=== PATIENT | female | born 2000 | race Hispanic/Latino ===

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

== ENCOUNTER 2021-07-26 05:26 | Emergency (ER) | payer BC ==
[2021-07-26] MEDS ORDERED: ACETAMINOPHEN 325 MG TABLET ONE (05:56)
[2021-07-26 07:54] LABS: SARS-COV-2 RT PCR POSITIVE (NEGATIVE)
--- NOTE | 2021-07-26 08:07 | ER ---
Nurse's Notes [facility] Name: Umm Reyes Age: 20 yrs Sex: Female : 2000 Arrival Date: 07/26/2021 Time: 05:33 Bed 20 Private MD: Diagnosis: SARS-associated coronavirus as the cause of diseases classified elsewhere Presentation: 07/26 05:51 Chief complaint: Patient states: C/o chills, cough, itchy throat, body aches and mk sneezing x2-3 days. Febrile in triage and denies SOB. Denies pmhx. Coronavirus screen: Vaccine status: Patient reports being unvaccinated. Ebola Screen: Patient negative for fever greater than or equal to 101.5 degrees Fahrenheit, and additional compatible Ebola Virus Disease symptoms. Initial Sepsis Screen: Does the patient meet any 2 criteria? No. Patient's initial sepsis screen is negative. Does the patient have a suspected source of infection? No. Patient's initial sepsis screen is negative. Risk Assessment: Do you want to hurt yourself or someone else? Patient reports no desire to harm self or others. Onset of symptoms was July 23, 2021. 05:51 Method Of Arrival: Ambulatory 05:51 Acuity: SAMY 4 Triage Assessment: 05:53 Headache History: Denies prior headaches. General: Appears in no apparent distress. mk Behavior is calm, cooperative. Pain: Denies pain. Complains of pain in throat Pain currently is 5 out of 10 on a pain scale. Quality of pain is described as burning, Pain began gradually, 2-3 days ago. Is continuous, Alleviated by medications. Neuro: Level of Consciousness is awake, alert, obeys commands, Oriented to person, place, time, situation, Die Trimmer are equal bilaterally. Cardiovascular: Capillary refill < 3 seconds in bilateral fingers toes Pulses are 2+ in right radial artery, right dorsalis pedis artery, left radial artery and left dorsalis pedis artery. 06:00 Pain: Also complains of no other associated symptoms. 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 - Social history:: Smoking status: Patient denies any tobacco usage or history of. Screenin:52 Abuse screen: Denies threats or abuse. Nutritional screening: No deficits noted. Tuberculosis screening: No symptoms or risk factors identified. Fall Risk None identified. Assessment: 05:52 General: Appears in no apparent distress. comfortable, Behavior is calm, cooperative. santiago Pain: Denies pain. Neuro: No deficits noted. Respiratory: Reports cough that is non-productive. GI: No deficits noted. 05:52 General: The pt is in NAD. She reports a cough and WALLACE. She denies having a covid santiago vaccine and was swabbed by this nurse. . 06:32 General: Report will be given to the oncoming RN. . santiago Vital Signs: 05:51 BP 134 / 85; Pulse 118; Resp 20; Temp 101.3; Pulse Ox 97% on R/A; Weight 61.4 kg; Height 5 ft. 4 in. (162.56 cm); 05:52 BP 134 / 85; Pulse 115; Resp 18; Temp 100.3; Pulse Ox 99% on R/A; Pain 0/10; santiago 06:15 Temp 98.4(O); santiago 07:55 BP 120 / 77; Pulse 89; Resp 18; Pulse Ox 99% on R/A; wallace 05:51 Body Mass Index 23.23 (61.40 kg, 162.56 cm) ED Course: 05:33 Patient arrived in ED. 05:45 Maisha Cabral, RN is Primary Nurse. santiago 05:52 Triage completed. 05:52 Patient has correct armband on for positive identification. Bed in low position. Call santiago light in reach. Adult w/ patient. 05:52 No provider procedures requiring assistance completed. santiago 05:57 Strep Sent. santiago 05:58 COVID-19/FLU A+B (Document "Date of Onset" if Symptomatic) Sent. santiago 06:01 Arm band placed on. santiago 06:18 Ramone Wilde PA is PHCP. cp 06:18 Tom Atwood MD is Attending Physician. cp 08:10 Patient did not have IV access during this emergency room visit. wallace Administered Medications: 05:57 Drug: Tylenol 650 mg Route: PO; santiago 06:08 Follow up: Response: No adverse reaction santiago Outcome: 06:00 Condition: stable santiago 08:06 Discharge ordered by MD. ruiz 08:10 Discharged to home wallace 08:10 Condition: good 08:10 Discharge instructions given to patient, Prescriptions given X 1. 08:11 Patient left the ED. wallace Signatures: Ramone Wilde PA PA cp Marsh, Wendy wm O'Farrell, Brenda, RN RN bo Au-Stager, Heather, RN RN ha Kotarski, Madeline, RN RN mk Corrections: (The following items were deleted from the chart) 05:54 05:51 Chief complaint: Patient states: C/o chills, cough, itchy throat, sneezing x2-3 mk days. Febrile in triage and denies SOB. Denies pmhx. mk
--- NOTE | 2021-07-26 08:07 | EDPHYS ---
Physician Documentation [facility] Name: Umm Reyes Age: 20 yrs Sex: Female : 2000 Arrival Date: 07/26/2021 Time: 05:33 Bed 20 Private MD: ED Physician Tom Atwood HPI: 07/26 07:05 This 20 yrs old Female presents to ER via Ambulatory with complaints of cp Headache, Fever, Body aches. 07:05 The patient or guardian reports flu symptoms, headache, fever, body aches. Onset: The cp symptoms/episode began/occurred 3 day(s) ago. 07:05 Associated signs and symptoms: Pertinent positives: sore throat, Pertinent negatives: cp chest pain, diarrhea, vomiting. 07:05 Patient reports she has not been vaccinated against COVID-19. 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 - Social history:: Smoking status: Patient denies any tobacco usage or history of. ROS: 07:06 Eyes: Negative for injury, pain, redness, and discharge. cp 07:06 Constitutional: Positive for body aches, fever, Negative for poor PO intake. 07:06 ENT: Positive for sore throat, Negative for drainage from ear(s), ear pain, difficulty swallowing, difficulty handling secretions. 07:06 Cardiovascular: Negative for chest pain. 07:06 Respiratory: Positive for cough, with no reported sputum, Negative for shortness of breath, wheezing. 07:06 Abdomen/GI: Negative for abdominal pain, nausea, vomiting, and diarrhea. 07:06 Skin: Negative for rash. 07:06 Neuro: Positive for headache, Negative for altered mental status, weakness. 07:06 All other systems are negative. Exam: 07:07 Head/Face: Normocephalic, atraumatic. cp 07:07 Constitutional: The patient appears in no acute distress, alert, awake, comfortable, non-toxic, well developed, well nourished. 07:07 Eyes: Periorbital structures: appear normal, Conjunctiva: normal, no exudate, no injection, Lids and lashes: appear normal, bilaterally. 07:07 ENT: External ear(s): are unremarkable, Ear canal(s): cerumen impaction, that is moderate, bilaterally, Nose: is normal, Mouth: Lips: moist, Oral mucosa: moist, Posterior pharynx: Airway: no evidence of obstruction, patent, Tonsils: with erythema, no enlargement, no exudate, swelling, is not appreciated, erythema, that is mild, exudate, is not appreciated. 07:07 Neck: ROM/movement: is normal, is supple, without pain, no range of motions limitations, Lymph nodes: no appreciated lymphadenopathy. 07:07 Chest/axilla: Inspection: normal. 07:07 Cardiovascular: Rate: tachycardic, Rhythm: regular. 07:07 Respiratory: the patient does not display signs of respiratory distress, Respirations: normal, no use of accessory muscles, no retractions, labored breathing, is not present, Breath sounds: are clear throughout, no decreased breath sounds, no stridor, no wheezing. 07:07 Abdomen/GI: Exam negative for discomfort, distension, guarding, Inspection: abdomen appears normal. 07:07 Neuro: Orientation: to person, place \\T\\ time. Mentation: is normal, Motor: moves all fours, strength is normal, Sensation: is normal. Vital Signs: 05:51 BP 134 / 85; Pulse 118; Resp 20; Temp 101.3; Pulse Ox 97% on R/A; Weight 61.4 kg; mk Height 5 ft. 4 in. (162.56 cm); 05:52 BP 134 / 85; Pulse 115; Resp 18; Temp 100.3; Pulse Ox 99% on R/A; Pain 0/10; santiago 06:15 Temp 98.4(O); santiago 07:55 BP 120 / 77; Pulse 89; Resp 18; Pulse Ox 99% on R/A; grissom 05:51 Body Mass Index 23.23 (61.40 kg, 162.56 cm) MDM: 06:23 Patient medically screened. cp 08:04 Data reviewed: vital signs, nurses notes, lab test result(s). ED course: VSS. Patient cp appears non-toxic and no signs of respiratory distress. Will discharge to home for continued monitoring. 07/26 05:52 Order name: COVID-19/FLU A+B (Document "Date of Onset" if Symptomatic); Complete Time: rn 08:02 07/26 08:02 Interpretation: Reviewed. cp 07/26 05:52 Order name: Strep rn 07/26 06:15 Order name: Throat Culture EDMS Administered Medications: 05:57 Drug: Tylenol 650 mg Route: PO; santiago 06:08 Follow up: Response: No adverse reaction santiago Disposition: 07/27 00:05 Co-signature as Attending Physician, Tom Atwood MD I agree with the assessment and rn plan of care. Attestation: The patient's history, exam findings, diagnostics, and a summary of any interventions or procedures was reviewed in detail with Ramone QUIGLEY. Disposition Summary: 07/26/21 08:06 Discharge Ordered Location: Home cp Problem: new cp Symptoms: have improved cp Condition: Stable cp Diagnosis - SARS-associated coronavirus as the cause of diseases classified elsewhere cp Followup: cp - With: Private Physician - When: 2 - 3 days - Reason: Worsening of condition Discharge Instructions: - Discharge Summary Sheet cp - COVID-19 cp - Things to Know about the COVID-19 Pandemic - [facility] cp - 10 Things You Can Do to Manage Your COVID-19 Symptoms at Home - [facility] cp - COVID-19: Quarantine vs. Isolation - [facility] cp - Prevent the Spread of COVID-19 if You Are Sick - [facility] cp Forms: - Medication Reconciliation Form cp - Thank You Letter cp - Antibiotic Education cp - Prescription Opioid Use cp Prescriptions: - Ibuprofen 600 mg Oral Tablet - take 1 tablet by ORAL route every 8 hours As needed take with food; 30 tablet; cp Refills: 0, Product Selection Permitted Signatures: Dispatcher [employer] EDTom Fernandez MD MD rn Page, Corey, PA PA cp Maisha Cabral RN RN bo Kotarski, Madeline RN BEBE mk Corrections: (The following items were deleted from the chart) 07/26 17:34 07:05 Onset: The symptoms/episode began/occurred yesterday, cp cp
[2021-07-26 08:25] VITALS: O2SAT 99
[2021-07-26 08:30] VITALS: TEMP 98.4
[2021-07-26 08:36] VITALS: BP 120/77
== END 2021-07-26 08:11 | disposition home or self-care (01) ==
LOC: ER 05:26
DX: U07.1 COVID-19 (principal); Z88.0 Allergy status to penicillin
CPT/HCPCS: 87070; 87081; 0240U; 99283

== ENCOUNTER 2021-11-06 20:17 | Emergency (ER) | payer OTHER ==
--- NOTE | 2021-11-06 21:57 | EDPHYS ---
Physician Documentation [facility] Name: Umm Reyes Age: 21 yrs Sex: Female : 2000 Arrival Date: 11/06/2021 Time: 20:19 Bed Waiting Private MD: ED Physician Ramone Gallardo HPI: 11/06 21:53 This 21 yrs old Female presents to ER via Ambulatory with complaints of Breast jmm Problem. 21:53 the patient presents with a swollen area of the left nipple. Onset: The jmm symptoms/episode began/occurred gradually. Possible cause(s): unknown. This is a 21 year old female with no chronic medical conditions that presents to the ED with complaints of left nipple discharge. Patient states taking out a nipple ring because she was . Patient denies fever, chills. . 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 - Social history:: Smoking status: Patient denies any tobacco usage or history of. ROS: 21:53 Constitutional: Negative for fever, chills, and weight loss, Cardiovascular: Negative jmm for chest pain, palpitations, and edema, Respiratory: Negative for shortness of breath, cough, wheezing, and pleuritic chest pain. 21:53 All other systems are negative. Exam: 21:53 Constitutional: This is a well developed, well nourished patient who is awake, alert, jmm and in no acute distress. Head/Face: atraumatic. Eyes: EOMI, no conjunctival erythema appreciated ENT: Moist Mucus Membranes Neck: Trachea midline, Supple Cardiovascular: Regular rate and rhythm. No edema appreciated 21:53 Abdomen/GI: Non distended, soft Back: Normal ROM Skin: General appearance color normal MS/ Extremity: Moves all extremities, no obvious deformities appreciated, no edema noted to the lower extremities Neuro: Awake and alert Psych: Behavior is normal, Mood is normal, Patient is cooperative and pleasant 21:53 Chest/axilla: purulent drainage noted from the left nipple, no surrounding erythema or induration. Vital Signs: 20:39 BP 111 / 69; Pulse 75; Resp 14; Temp 99; Pulse Ox 100% ; Weight 58.97 kg; Height 5 ft. al4 4 in. (162.56 cm); Pain 7/10; 21:47 BP 116 / 79; Pulse 78; Resp 16 S; Pulse Ox 100% on R/A; al4 20:39 Body Mass Index 22.31 (58.97 kg, 162.56 cm) al4 MDM: 21:53 Patient medically screened. [facility] 21:55 Data reviewed: vital signs, nurses notes. Counseling: I had a detailed discussion with [facility] the patient and/or guardian regarding: the historical points, exam findings, and any diagnostic results supporting the discharge/admit diagnosis, the need for outpatient follow up, to return to the emergency department if symptoms worsen or persist or if there are any questions or concerns that arise at home. ED course: patient is alert and non toxic in appearance in the ED. advised to follow up with gen surgery for further evaluation. Patient understood and agrees with the plan of care. . 11/06 21:52 Order name: Wound Culture [facility] Administered Medications: 22:06 Drug: Clindamycin 300 mg Route: PO; bb 22:11 Follow up: Response: No adverse reaction bb Disposition Summary: 11/06/21 21:57 Discharge Ordered Location: Home [facility] Condition: Stable [facility] Diagnosis - Cutaneous Abscess of the [place]ola [facility] Followup: [facility] - With: Iftikhar Winters MD - When: Tomorrow - Reason: Recheck today's complaints, Continuance of care, Re-evaluation by your physician Discharge Instructions: - Discharge Summary Sheet [facility] - Skin Abscess [facility] Forms: - Medication Reconciliation Form [facility] - Thank You Letter [facility] - Antibiotic Education [facility] - Prescription Opioid Use [facility] Prescriptions: - Clindamycin HCl 300 mg Oral Capsule - take 1 capsule by ORAL route every 6 hours for 10 days; 40 capsule; Refills: 0, [facility] Product Selection Permitted Signatures: Dispatcher [employer] EDMS Ashwin Melendez PA PA jmm Ballard, Brenda, RN RN Felipe Hanson al4 Corrections: (The following items were deleted from the chart) 22:18 21:53 Wound Culture+BA.LAB.BRZ ordered. EDMS EDMS
--- NOTE | 2021-11-06 21:57 | ER ---
Nurse's Notes [facility] Name: Umm Reyes Age: 21 yrs Sex: Female : 2000 Arrival Date: 11/06/2021 Time: 20:19 Bed Waiting [facility] MD: Diagnosis: Cutaneous Abscess of the [place] Presentation: 11/06 20:39 Chief complaint: Patient states: patient reports taking nipple piercings out 4 weeks al4 ago and now swollen L nipple + pain described as pinching. symptoms started 4 days ago. Coronavirus screen: Vaccine status: Patient reports being unvaccinated. Ebola Screen: No symptoms or risks identified at this time. Initial Sepsis Screen: Does the patient meet any 2 criteria? No. Patient's initial sepsis screen is negative. Does the patient have a suspected source of infection? No. Patient's initial sepsis screen is negative. Risk Assessment: Do you want to hurt yourself or someone else? Patient reports no desire to harm self or others. Onset of symptoms was November 03, 2021. 20:39 Method Of Arrival: Ambulatory al4 20:39 Acuity: SAMY 4 al4 Triage Assessment: 20:41 General: Appears in no apparent distress. uncomfortable, Behavior is calm, cooperative. al4 Pain: Complains of pain in left nipple and left breast Pain currently is 8 out of 10 on a pain scale. Quality of pain is described as tingling, throbbing, piercing, pinching. Neuro: Level of Consciousness is awake, alert, obeys commands, Oriented to person, place, time, situation. Cardiovascular: Patient's skin is warm and dry. Respiratory: Airway is patent Respiratory effort is unlabored, Respiratory pattern is regular. 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 - Social history:: Smoking status: Patient denies any tobacco usage or history of. Screenin:36 Abuse screen: Denies threats or abuse. Nutritional screening: No deficits noted. al4 Tuberculosis screening: No symptoms or risk factors identified. Fall Risk None identified. Assessment: 21:12 Reassessment: Patient appears in no apparent distress at this time. Patient is alert al4 and oriented. Patient has visitor present at this time. . 21:48 Reassessment: ER PA in triage room assessing patient. al4 21:59 Reassessment: Patient appears in no apparent distress at this time. al4 22:37 Reassessment: Patient appears in no apparent distress at this time. Patient is alert, al4 oriented x 3, equal unlabored respirations, skin warm/dry/pink. Vital Signs: 20:39 BP 111 / 69; Pulse 75; Resp 14; Temp 99; Pulse Ox 100% ; Weight 58.97 kg; Height 5 ft. al4 4 in. (162.56 cm); Pain 7/10; 21:47 BP 116 / 79; Pulse 78; Resp 16 S; Pulse Ox 100% on R/A; al4 20:39 Body Mass Index 22.31 (58.97 kg, 162.56 cm) al4 ED Course: 20:19 Patient arrived in ED. jj6 20:41 Triage completed. al4 20:41 Arm band placed on right wrist. al4 21:17 Ashwin Melendez PA is PHCP. [facility] 21:18 Ramone Gallardo MD is Attending Physician. [facility] 21:56 Iftikhar Winters MD is Referral Physician. [facility] 21:58 Wound Culture Sent. al4 22:36 Patient has correct armband on for positive identification. al4 22:36 No provider procedures requiring assistance completed. Patient did not have IV access al4 during this emergency room visit. 22:37 Felipe Lan is Primary Nurse. al4 Administered Medications: 22:06 Drug: Clindamycin 300 mg Route: PO; bb 22:11 Follow up: Response: No adverse reaction bb Outcome: 21:57 Discharge ordered by . jm 22:36 Discharged to home ambulatory. al4 22:36 Condition: stable 22:36 Discharge instructions given to patient, family, Instructed on discharge instructions, follow up and referral plans. medication usage, Demonstrated understanding of instructions, follow-up care, medications. 22:37 Patient left the ED. al4 Signatures: Ashwin Melendez PA PA Maisha Jones, BEBE RN Sujey Rodriguez jj6 Felipe Lan al4 Corrections: (The following items were deleted from the chart) 22:18 21:58 Wound Culture+BA.LAB.BRZ drawn and sent. al4 EDMS
[2021-11-06 22:47] VITALS: TEMP 99; O2SAT 100
[2021-11-06 22:48] VITALS: BP 116/79
== END 2021-11-06 22:37 | disposition home or self-care (01) ==
LOC: ER 20:17
DX: N61.1 Abscess of the breast and nipple (principal); Z88.0 Allergy status to penicillin
CPT/HCPCS: 87070; 87205; 99283

== ENCOUNTER 2021-11-15 17:02 | Emergency (ER) | payer OTHER ==
[2021-11-15 17:42] LABS: Absolute Lymphocytes (CBC) 2.3 K/uL (0.7-4.9); Hematocrit 36.2 % (36.0-45.0); Lymphocytes % 18.9 % (15.3-44.8); MPV 8.2 fL (7.6-11.3); RBC Red Blood Cell Count 3.99 M/uL (3.86-4.86)
[2021-11-15 17:50] LABS: Protime INR 1.08
[2021-11-15 18:04] LABS: ALT/SGPT 23 U/L (12-78); AST/SGOT 14 U/L (15-37); Albumin 3.7 g/dL (3.4-5.0); Alkaline Phosphatase 42 U/L (45-117); BUN Blood Urea Nitrogen 12 mg/dL (7-18); Bicarbonate 23 mmol/L (21-32); Bilirubin Direct 0.2 mg/dL (0-0.2); Bilirubin Total 0.5 mg/dL (0.2-1.0); Glucose Level 70 mg/dL (74-106); Potassium 3.3 mmol/L (3.5-5.1); Protein, Total 7.6 g/dL (6.4-8.2); Sodium Level 135 mmol/L (136-145)
[2021-11-15] MEDS ORDERED: NA CHLORIDE 0.9% 1,000 ML ONE (18:05)
[2021-11-15] MEDS ORDERED: NS KCL 20MEQ 1,000 ML IV ONE (18:40)
[2021-11-15 20:14] LABS: Urine Blood 1+ (Negative); Urine Glucose Negative (Negative); Urine Protein 1+ (Negative); Urine Specific Gravity 1.025 (1.005-1.030)
[2021-11-15 20:25] LABS: Urine Specific Gravity/Preg 1.025 (1.005-1.030)
[2021-11-15 20:33] LABS: Barbiturates NEGATIVE (NEGATIVE); Benzodiazepines NEGATIVE (NEGATIVE); Cocaine NEGATIVE (NEGATIVE); METHAMPHETAM NEGATIVE (NEGATIVE); Methadone NEGATIVE (NEGATIVE); Opiates NEGATIVE (NEGATIVE); Phencyclidine NEGATIVE (NEGATIVE); THC Cannibis NEGATIVE (NEGATIVE)
[2021-11-15] MEDS ORDERED: DICYCLOMINE HCL 20 MG/2 ML AMP IM ONE (21:32)
[2021-11-15] MEDS ORDERED: PANTOPRAZOLE 40 MG INJ ONE (21:34)
[2021-11-16 00:15] LABS: Potassium 3.8 mmol/L (3.5-5.1)
--- NOTE | 2021-11-16 02:02 | ER ---
Nurse's Notes [facility] Name: Umm Reyes Age: 21 yrs Sex: Female : 2000 Arrival Date: 11/15/2021 Time: 17:13 Bed 8 Private MD: Diagnosis: Impulsiveness;Suicidal ideations;10 weeks gestation of ;UTI/ Urinary tract infection, site not specified Presentation: 11/15 07:13 Chief complaint: Patient states: Took "handful" of ibuprofen, 800 mg tablets ss approximately 2 hours ago. Pt states that she is 10.5 weeks . Has been having suicidal thoughts recently, no HX of suicidal attempt in the past. Coronavirus screen: Client denies travel out of the [place] in the last 14 days. 07:13 Method Of Arrival: Wheelchair ss 17:26 Ebola Screen: No symptoms or risks identified at this time. Risk Assessment: Do you ph want to hurt yourself or someone else? Patient reports desire/thoughts of hurting themselves or someone else. Provider notified. 17:26 Acuity: SAMY 2 ph 17:49 Initial Sepsis Screen: Does the patient meet any 2 criteria? No. Patient's initial ph sepsis screen is negative. Does the patient have a suspected source of infection? No. Patient's initial sepsis screen is negative. Onset of symptoms was November 15, 2021. Historical: - Allergies: 17:24 PENICILLINS; ph - Immunization history:: Adult Immunizations up to date. - Social history:: Smoking status: Patient denies any tobacco usage or history of. Screenin:25 Abuse screen: Denies threats or abuse. Denies injuries from another. Nutritional ph screening: No deficits noted. Tuberculosis screening: No symptoms or risk factors identified. Fall Risk None identified. Assessment: 17:30 Reassessment: PT remains on monitors for 6 hours medical observation. [place] technical service representative who ss is sitting with patient currently is aware of any and all ligature risks that remain in room. Pt voices concern about her . Mother remains at bedside. General: Appears in no apparent distress. Behavior is cooperative, quiet. Pain: Denies pain. Neuro: Ritchie Agitation-Sedation Scale (RASS): 0 - Alert and Calm Level of Consciousness is awake, alert, obeys commands, Oriented to person, place, time, situation. Cardiovascular: Capillary refill < 3 seconds is brisk in bilateral fingers. Respiratory: Airway is patent Respiratory effort is even, unlabored, Respiratory pattern is regular, symmetrical, Denies cough, shortness of breath labored breathing. GI: Abdomen is non-distended. : No signs and/or symptoms were reported regarding the genitourinary system. EENT: Oral mucosa is moist. Derm: Skin is intact, is healthy with good turgor, Skin is dry, Skin is pink, warm \\T\\ dry. normal. Musculoskeletal: Circulation, motion, and sensation intact. Range of motion: intact in all extremities, Swelling absent. 18:38 Reassessment: Patient appears in no apparent distress at this time. No changes from jd3 previously documented assessment. Patient and/or family updated on plan of care and expected duration. Pain level reassessed. Patient is alert, oriented x 3, equal unlabored respirations, skin warm/dry/pink. 19:10 Reassessment: Nurse handing off report states IV fluids running at 250ml/hr instead of jb4 rate 500ml/hr, provider okayed fluid to continue at this rate after shift change. 19:30 Reassessment: Patient appears in no apparent distress at this time. Patient and/or jb4 family updated on plan of care and expected duration. Pain level reassessed. Patient is alert, oriented x 3, equal unlabored respirations, skin warm/dry/pink. 20:30 Reassessment: Patient appears in no apparent distress at this time. Patient and/or jb4 family updated on plan of care and expected duration. Pain level reassessed. Patient is alert, oriented x 3, equal unlabored respirations, skin warm/dry/pink. 21:25 Reassessment: Patient and/or family updated on plan of care and expected duration. Pain jb4 level reassessed. Patient is alert, oriented x 3, equal unlabored respirations, skin warm/dry/pink. Pt reporting abdominal pain and cramping, provider notified, see MAR for orders. 22:17 Reassessment: Patient appears in no apparent distress at this time. Patient and/or jb4 family updated on plan of care and expected duration. Pain level reassessed. Patient is alert, oriented x 3, equal unlabored respirations, skin warm/dry/pink. 23:30 Reassessment: Patient appears in no apparent distress at this time. Patient and/or jb4 family updated on plan of care and expected duration. Pain level reassessed. Patient is alert, oriented x 3, equal unlabored respirations, skin warm/dry/pink. 11/16 00:30 Reassessment: Patient appears in no apparent distress at this time. Patient and/or jb4 family updated on plan of care and expected duration. Pain level reassessed. Patient is alert, oriented x 3, equal unlabored respirations, skin warm/dry/pink. 01:30 Reassessment: Patient appears in no apparent distress at this time. Patient and/or jb4 family updated on plan of care and expected duration. Pain level reassessed. Patient is alert, oriented x 3, equal unlabored respirations, skin warm/dry/pink. Psych: 11/15 17:15 [place] Suicide Severity Screening: In the past month, have you wished you were ss or wished you could go to sleep and not wake up? Patient responds "yes." "In the past month, have you actually had any thoughts of killing yourself?" Patient responds "yes." "In your lifetime, have you ever done anything, started to do anything, or prepared to do anything to end your life?" Patient responds "yes." Patient reports suicidal intent within 3 past months. Subjective: Patient's mood is sad, Delusions are denied, Hallucinations are denied Having thoughts of suicide. Objective: Patient is cooperative, Speech is normal, Affect is flat. Interventions: Removed personal items and placed in bag. Searched person for dangerous items. Belonging list filled out. Belongings list completed. Copy of paper and belongings given to security, copy placed in patient chart and copy remains with sitter log. Safety Checks: Personal items have been removed. Door is open. Visitors are present. PT must remain on monitors for a minimum of 6 hour MEDICAL observation. Sitter is aware of any ligature risks in the room. Pt denies substance abuse. Commitment: Patient will be a voluntary commitment. Vital Signs: 17:20 BP 131 / 86; Pulse 93; Resp 14; Temp 97.6(TE); Pulse Ox 99% on R/A; ss 18:38 BP 122 / 78; Pulse 86; Resp 19 S; Pulse Ox 100% on R/A; jd3 19:30 BP 115 / 75; Pulse 78; Resp 16; Pulse Ox 98% on R/A; jb4 20:30 BP 117 / 73; Pulse 82; Resp 16; Pulse Ox 100% on R/A; jb4 21:09 BP 104 / 68; Pulse 85; Resp 18; Pulse Ox 100% ; zm 22:00 BP 102 / 63; Pulse 81; Resp 16; Pulse Ox 98% on R/A; jb4 23:30 BP 108 / 62; Pulse 76; Resp 16; Pulse Ox 98% on R/A; jb4 0512 01:30 BP 116 / 71; Pulse 81; Resp 18 S; Pulse Ox 96% ; jb4 Vitals: 02:54 Heart Tones 155bpm; Dr. Gallardo notified . lp1 ED Course: 11/15 17:13 Patient arrived in ED. jr8 17:15 Tera Melgar PA is PHCP. jr8 17:15 Rashid Muñiz DO is Attending Physician. jr8 17:22 Jose Vail, RN is Primary Nurse. jd3 17:25 Arm band placed on Patient placed in an exam room. ph 17:26 Triage completed. ph 17:34 Inserted saline lock: 20 gauge in right antecubital area, using aseptic technique. zm Blood collected. 17:35 Acetaminophen Sent. zm 17:35 Basic Metabolic Panel Sent. zm 17:35 CBC with Diff Sent. zm 17:35 ETOH Level Sent. zm 17:35 Hepatic Function Sent. zm 17:35 PT-INR Sent. zm 17:35 Ptt, Activated Sent. zm 17:35 Salicylate Sent. zm 17:49 Jerri Cam, RN is Primary Nurse. ph 17:49 Patient has correct armband on for positive identification. Placed in gown. Bed in low ph position. Call light in reach. Client placed on continuous cardiac and pulse oximetry monitoring. NIBP monitoring applied. 20:07 COVID-19 SARS RT PCR (Document "Date of Onset" if Symptomatic) Sent. zm 23:33 contacted [facility] spoke to [facility] to have a screener evaluate the mw2 patient. 11/16 01:16 Attending Physician role handed off by Rashid Muñiz DO leana 01:16 Ramone Gallardo MD is Attending Physician. leana 02:02 Amrit Boykin MD is Referral Physician. leana 02:03 Rodolfo Cannon MD is Referral Physician. [facility] 03:05 No provider procedures requiring assistance completed. IV discontinued, intact, jb4 bleeding controlled, No redness/swelling at site. Pressure dressing applied. Administered Medications: 11/15 18:17 Discontinued: NS 0.9% 1000 ml IV at 125 ml/hr continuous jr8 18:05 Drug: NS 0.9% 1000 ml Route: IV; Rate: 125 ml/hr; Site: right antecubital; jd3 18:37 Follow up: Response: No adverse reaction; IV Status: Order to discontinue infusion jd3 18:37 Drug: NS 0.9% with KCl 20 mEq/L 1000 ml Route: IV; Rate: 500 ml/hr; Site: right jd3 antecubital; 22:45 Follow up: Response: No adverse reaction; IV Status: Completed infusion; IV Intake: jb4 1000ml 21:46 Drug: ProTONIX (pantoprazole) 40 mg Route: IVP; Site: right antecubital; jb4 23:00 Follow up: Response: No adverse reaction; Marked relief of symptoms jb4 22:24 Drug: Dicyclomine 20 mg Route: IM; Site: right ventrogluteal; as6 23:00 Follow up: Response: No adverse reaction; Marked relief of symptoms jb4 Medication: 17:30 VIS not applicable for this client. ss Intake: 22:45 IV: 1000ml; Total: 1000ml. jb4 Outcome: 11/16 02:02 Discharge ordered by . [facility] 03:05 Discharged to home ambulatory. jb4 03:05 Condition: stable 03:05 Discharge instructions given to patient, Instructed on discharge instructions, follow up and referral plans. medication usage, Demonstrated understanding of instructions, follow-up care, medications, Prescriptions given X 1. 03:06 Patient left the ED. jb4 Signatures: Ramone Gallardo MD MD cha Smirch, Shelby RN RN ss Radha Rodgers RN RN lp1 Tera Melgar PA PA jr8 Jerri Cam RN RN ph Bryson, James, RN RN jb4 Jose Vail RN RN jd3 Danica Brenner mw2 Amador Butler RN RN as6 Bhavani Ralph Corrections: (The following items were deleted from the chart) 11/15 20:29 19:30 Reassessment: Patient appears in no apparent distress at this time. Patient jb4 and/or family updated on plan of care and expected duration. Pain level reassessed. Patient is alert, oriented x 3, equal unlabored respirations, skin warm/dry/pink. jb4 11/16 02:54 02:54 Heart Tones 155bpm. lp1 lp1
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
[2021-11-16 05:02] VITALS: TEMP 97.6
[2021-11-16 05:11] VITALS: BP 116/71; O2SAT 96
--- NOTE | 2021-11-16 07:45 | EKG ---
Test Date: 2021-11-15 Test Time: 17:15:09 Technology Risk Intern: [place] MEASUREMENT RESULTS: Intervals: Rate: 79 MT: 130 QRSD: 84 QT: 384 QTc: 440 [place]: P: 60 MT: 130 QRS: 42 T: 29 INTERPRETIVE STATEMENTS: Normal sinus rhythm Normal ECG Compared to ECG 10/26/2015 22:27:30 No significant changes Electronically Signed On 11-16-21 07:43:22 CDT by Leopoldo Villa
== END 2021-11-16 03:06 | disposition home or self-care (01) ==
LOC: ER 17:02
DX: O26.891 Other specified pregnancy related conditions, first trimester (principal); R45.851 Suicidal ideations; R45.87 Impulsiveness; O23.41 Unspecified infection of urinary tract in pregnancy, first trimester; N39.0 Urinary tract infection, site not specified; Z3A.10 10 weeks gestation of pregnancy; Z20.822 Contact with and (suspected) exposure to COVID-19; Z88.0 Allergy status to penicillin
CPT/HCPCS: 96361; 93005; 85025; 80048 ×2; 36415; 80320; 80329 ×2; 81025; 85610; 80076; 85730; 81003; 80307; 96372; 96374; 99285; U0003; C9113; J7030; J3480; J0500

== ENCOUNTER 2022-01-03 08:18 | Emergency (ER) | payer BC, OTHER ==
[2022-01-03] MEDS ORDERED: BUPIVACAINE 0.25% PF 10 ML VIAL ONE (09:01)
--- NOTE | 2022-01-03 10:19 | ER ---
Nurse's Notes [facility] Name: Umm Reyes Age: 21 yrs Sex: Female : 2000 Arrival Date: 01/03/2022 Time: 08:20 Bed 18 Private MD: Diagnosis: Cellulitis of unspecified finger;Acute pharyngitis, unspecified Presentation: 01/03 08:23 Chief complaint: Patient states: she feels her throat is "itchy" and reports it feeling ap3 this way for approx 3 days now. Patient denies pain/difficulty when swallowing. She reports being at a clinic for blood work recently, and thinks she was around people who had COVID so she wants to be tested. Patient also reports having a painful inflamed area near her right middle fingernail for approx one week. Patient also reports being 17 weeks 4 days . Coronavirus screen: At this time, the client does not indicate any symptoms associated with coronavirus-19. Ebola Screen: (+) Ebola Screening. Initial Sepsis Screen: Does the patient meet any 2 criteria? Yes Does the patient have a suspected source of infection? No. Patient's initial sepsis screen is negative. Risk Assessment: Do you want to hurt yourself or someone else? Patient reports no desire to harm self or others. Onset of symptoms was December 31, 2021. 08:23 Method Of Arrival: Ambulatory ap3 08:23 Acuity: SAMY 4 ap3 Triage Assessment: 08:27 General: Appears in no apparent distress. Behavior is calm, cooperative, appropriate ap3 for age. Pain: Denies pain. EENT: Reports "itchy" throat. Neuro: Level of Consciousness is awake, alert, obeys commands, Oriented to person, place, time, situation, Appropriate for age Gait is steady, Speech is normal. Cardiovascular: Patient's skin is warm and dry. Respiratory: Airway is patent Respiratory effort is even, unlabored, Respiratory pattern is regular, symmetrical. : Reports : 17weeks 4 days. 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 - Social history:: Smoking status: Patient denies any tobacco usage or history of. Screenin:28 Abuse screen: Denies threats or abuse. Nutritional screening: No deficits noted. ap3 Tuberculosis screening: No symptoms or risk factors identified. Fall Risk None identified. Assessment: 09:00 General: Appears in no apparent distress. comfortable, Behavior is calm, cooperative. ww Pain: Complains of pain in right middle fingernail. Neuro: Level of Consciousness is awake, alert, obeys commands, Oriented to person, place, time, situation, Moves all extremities. Speech is normal. Cardiovascular: Capillary refill < 3 seconds Patient's skin is warm and dry. Respiratory: Airway is patent Respiratory effort is even, unlabored, Respiratory pattern is regular, symmetrical, Breath sounds are clear. GI: No signs and/or symptoms were reported involving the gastrointestinal system. : No signs and/or symptoms were reported regarding the genitourinary system. Derm: Skin is healthy with good turgor. 10:15 Reassessment: Patient appears in no apparent distress at this time. No changes from previously documented assessment. Patient and/or family updated on plan of care and expected duration. Pain level reassessed. Patient is alert, oriented x 3, equal unlabored respirations, skin warm/dry/pink. 11:08 Reassessment: Patient appears in no apparent distress at this time. No changes from previously documented assessment. Patient and/or family updated on plan of care and expected duration. Pain level reassessed. Patient is alert, oriented x 3, equal unlabored respirations, skin warm/dry/pink. Vital Signs: 08:23 BP 116 / 71; Pulse 109; Resp 17; Temp 98.2; Pulse Ox 99% ; Weight 58.97 kg; Height 5 ap3 ft. 4 in. (162.56 cm); 08:23 Body Mass Index 22.31 (58.97 kg, 162.56 cm) ap3 ED Course: 08:20 Patient arrived in ED. as 08:22 Ashwin Melendez PA is PHCP. [facility] 08:23 Ramone Gallardo MD is Attending Physician. jmm 08:26 Triage completed. ap3 08:29 Arm band placed on right wrist. ap3 09:00 Patient has correct armband on for positive identification. Bed in low position. Call ww light in reach. Side rails up X 1. 09:01 Aleksandra Connell, RN is Primary Nurse. ww 11:08 No provider procedures requiring assistance completed. Patient did not have IV access ww during this emergency room visit. Administered Medications: 10:30 Drug: Marcaine (bupivacaine) (0.5 %) 10 ml {Note: administered by DANN Christopher.} Volume: 10 ww ml; Route: Infiltration; Medication: 11:07 VIS not applicable for this client. ww Outcome: 10:18 Discharge ordered by MD. doshi 11:08 Discharged to home ambulatory. ww 11:08 Condition: stable 11:08 Discharge instructions given to patient, Instructed on discharge instructions, follow up and referral plans. medication usage, safety practices, wound care, Demonstrated understanding of instructions, follow-up care, medications, wound care, Prescriptions given X 1. 11:24 Patient left the ED. ww Signatures: Ashwin Melendez PA PA jmm Martinez, Amelia as Prokisch, Amanda, RN RN ap3 Aleksandra Connell RN RN ww Corrections: (The following items were deleted from the chart) 08:27 08:23 Chief complaint: Patient states: she feels her throat is "itchy" and reports it ap3 feeling this way for approx 3 days now. Patient denies pain/difficulty when swallowing. She reports being at a clinic for blood work recently, and thinks she was around people who had COVID so she wants to be tested. Patient also reports having a painful inflamed area near her right middle fingernail for approx one week. ap3
--- NOTE | 2022-01-03 10:19 | EDPHYS ---
Physician Documentation [facility] Name: Umm Reyes Age: 21 yrs Sex: Female : 2000 Arrival Date: 01/03/2022 Time: 08:20 Bed 18 Private MD: ED Physician Ramone Gallardo HPI: 01/03 08:31 This 21 yrs old Female presents to ER via Ambulatory with complaints of Sore jmm Throat, finger nail infection. 08:31 Onset: The symptoms/episode began/occurred gradually. This is a 21 year old female with jmm no chronic medical conditions, currently 17 weeks that presents to the ED with complaints of right 3rd finger pain and swelling beginning approx 3 days ago. Patient states she does bite her nails. Also complains of some sore throat described as irritation and itchiness. Denies fever or chills. . 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 - Social history:: Smoking status: Patient denies any tobacco usage or history of. ROS: 08:31 Constitutional: Negative for fever, chills, and weight loss. jmm 08:31 ENT: Positive for sore throat. 08:31 MS/extremity: Positive for pain, swelling. 08:31 All other systems are negative. Exam: 08:31 Constitutional: This is a well developed, well nourished patient who is awake, alert, jmm and in no acute distress. Head/Face: atraumatic. Eyes: EOMI, no conjunctival erythema appreciated ENT: Moist Mucus Membranes Neck: Trachea midline, Supple Chest/axilla: Normal chest wall appearance and motion. Cardiovascular: Regular rate and rhythm. No edema appreciated Respiratory: Normal respirations, no respiratory distress appreciated Abdomen/GI: Non distended, soft Back: Normal ROM Skin: General appearance color normal 08:31 Musculoskeletal/extremity: swelling noted to the right 3rd phalanx, surrounding the nail plate. 08:31 Skin: Appearance: Color: normal in color, erythema noted to the right 3rd phalanx, surrounding the nail plate. 08:31 Neuro: Orientation: is normal, Mentation: is normal, Memory: is normal, Cranial nerves: 08:31 Psych: Behavior/mood is pleasant, cooperative. Vital Signs: 08:23 BP 116 / 71; Pulse 109; Resp 17; Temp 98.2; Pulse Ox 99% ; Weight 58.97 kg; Height 5 ap3 ft. 4 in. (162.56 cm); 08:23 Body Mass Index 22.31 (58.97 kg, 162.56 cm) ap3 Procedures: 10:15 I \\T\\ D: Incision and drainage was performed for an abscess of the right 3rd phalanx jmm Prepped with Betadine, Anesthetized with digital block, using 0.5% marcaine, 3 ml. Area was cleaned with alcohol swab prior to injection. Good anesthesia was achieved. Patient tolerated the procedure well. Incised with 18 gauge needle. Drained small amount purulent fluid. the patient tolerated the procedure well. MDM: 08:31 Patient medically screened. [facility] 10:15 Data reviewed: vital signs, nurses notes. Counseling: I had a detailed discussion with tico the patient and/or guardian regarding: the historical points, exam findings, and any diagnostic results supporting the discharge/admit diagnosis, the need for outpatient follow up, to return to the emergency department if symptoms worsen or persist or if there are any questions or concerns that arise at home. 10:17 ED course: Patient is alert and non toxic in appearance in the ED. Prescribed oral abx. darell Advised to follow up with her obgyn and otherwise given strict return precautions. Patient understood and agrees with the plan of care. . 01/03 09:28 Order name: SARS-COV-2 RT PCR (Document "Date of Onset" if Symptomatic); Complete Time: [facility] 12:07 01/03 09:28 Order name: Strep; Complete Time: 10:[address] [facility] 01/03 09:57 Order name: Misc. Order: remove nail [place], wound care. Right 3rd finger; Complete [facility] Time: 11:01/03 10:13 Order name: Throat Culture EDMS Administered Medications: 10:30 Drug: Marcaine (bupivacaine) (0.5 %) 10 ml {Note: administered by PA. Ashwin} Volume: 10 ww ml; Route: Infiltration; Disposition Summary: 01/03/22 10:18 Discharge Ordered Location: Home jmm Condition: Stable jmm Diagnosis - Cellulitis of unspecified finger jmm - Acute pharyngitis, unspecified jmm Followup: jmm - With: Private Physician - When: 1 - 2 days - Reason: Recheck today's complaints, Continuance of care, Re-evaluation by your physician Discharge Instructions: - Discharge Summary Sheet jmm - Paronychia jmm - Sore Throat jmm Forms: - Medication Reconciliation Form jm - Thank You Letter jm - Antibiotic Education jmm - Prescription Opioid Use jm Prescriptions: - Clindamycin HCl 300 mg Oral Capsule - take 1 capsule by ORAL route every 6 hours for 10 days; 40 capsule; Refills: 0, jmm Product Selection Permitted Signatures: Dispatcher [employer] EDRamone Burton MD MD cha Mickail, Joel, PA PA jmm Prokisch, Amanda, RN RN ap3 Aleksandra Connell RN RN ww
[2022-01-03 11:29] VITALS: BP 116/71; TEMP 98.2; O2SAT 99
== END 2022-01-03 11:24 | disposition home or self-care (01) ==
LOC: ER 08:18
PROC: 0H9FXZZ Drainage of Right Hand Skin, External Approach (ICD-10-PCS; principal; 2022-01-03)
DX: O98.512 Other viral diseases complicating pregnancy, second trimester (principal); U07.1 COVID-19; L03.011 Cellulitis of right finger; Z3A.17 17 weeks gestation of pregnancy; Z88.0 Allergy status to penicillin
CPT/HCPCS: 87070; 87081; 26010; U0003